=== PATIENT | male | born 1960 | race Caucasian/White ===

== ENCOUNTER → 2018-05-01 12:43 | Outpatient (CLI) | payer OTHER, SELFPAY ==
--- NOTE | 2018-05-01 | DI.US.S_ITS ---
PROCEDURE: US SCROTUM INDICATIONS: LEFT HYDROCELE TECHNIQUE: Real-time scanning was performed of the scrotum and testicles, with image documentation. Color and pulse Doppler interrogation was performed of both testicles. COMPARISON: [facility], , TESTICLE IMAGING, 02/21/2017, 15:52. FINDINGS: Right: Testicle is normal in size at 4.9 x 2.8 x 3.2 cm, and homogenous in echotexture. Epididymis is normal in overall size and morphology. No hydrocele or varicoceles. Overlying scrotal skin is normal in thickness. Left: Testicle is normal in size at 5.2 x 3.0 x 2.8 cm, and homogeneous in echotexture. 3 mm echogenic focus involving left testis is unchanged. Epididymis is normal in overall size and morphology. No hydrocele or varicoceles. Debris-filled cyst present within the left hemiscrotum likely a spermatocele measuring 4.6 x 4.5 x 6.1 cm, previously measured 6.4 x 5.9 x 5.2 cm on 02/21/17.. Overlying scrotal skin is normal in thickness. Doppler: Color and pulse Doppler demonstrate normal and symmetric arterial flow in both testicles. IMPRESSION: 1. Stable appearance of 3 mm echogenic focus within the left testicle otherwise testicles are normal bilaterally. 2. Debris-filled cystic mass within the left hemiscrotum suspicious for spermatocele/hydrocele measuring up to 6.1 cm. Dictated by: Kostas Pizarro [facility] Interpreted: Ashok Vila MD on 05/01/2018 at 15:00 Approved by: Ashok Vila M.D. on 05/01/2018 at 19:09
== END ==
PROVIDERS: PCP Family Medicine; Visit Provider Physician Assistant
DX: N43.3 Hydrocele, unspecified (principal)
CPT/HCPCS: 76870

== ENCOUNTER → 2018-06-19 12:43 | Outpatient (CLI) | payer OTHER, SELFPAY ==
[2018-06-19 12:49] LABS: Bacteria Urine None Seen; RBC Urine None Seen (0-5/HPF); WBC Urine None Seen (0-5/HPF)
[2018-06-19 13:01] LABS: Appearance Urine UA CLEAR; Bilirubin Urine UA NEGATIVE (NEGATIVE); Color Urine UA YELLOW; Glucose Urine UA NEGATIVE (Normal); Ketones Urine UA NEGATIVE (NEGATIVE); Leukocyte Esterase Urine UA NEGATIVE (NEGATIVE); Nitrite Urine UA Negative (Negative); Occult Blood Urine UA NEGATIVE (Negative); Protein Urine UA NEGATIVE (Negative); Specific Gravity Urine UA 1.025 (1.000-1.035); Urobilinogen Urine UA 0.2 E.U./dL (0.2); pH Urine UA 5.5 (4.5-8.0)
[2018-06-19 13:06] LABS: Add Manual Diff / Slide Review NO; Basophils Percent Auto 0.7 % (0-2); Eosinophils Percent Auto 4.7 % (2-4); Hemoglobin 12.9 g/dL (13.5-17.5); Lymphocytes Percent Auto 42.7 % (25-40); Mean Corpuscular HGB Conc 33.1 % (30-36); Mean Corpuscular Volume 81.6 fL (80-100); Monocytes Percent Auto 12.7 % (3-14); Neutrophils Absolute Auto 2500 /uL (3000-5900); Neutrophils Percent Auto 39.2 % (50-75); Platelet Count 242 X10^3/uL (150-400); Red Blood Cell Count 4.77 X10^6/uL (4.5-5.9); Red Cell Distribution Width 14.1 % (11.6-14.8); White Blood Cell Count 6.5 X10^3/uL (4.5-11.0)
[2018-06-19 13:07] LABS: Culture Indicated Urine Cult Not Indicated; Urine Comments Microscopic Normal
[2018-06-19 13:15] LABS: Hemoglobin A1C% w Est Avg Glu 5.7 % (4.0-6.0)
[2018-06-19 13:42] LABS: BUN Creatinine Ratio 27.5 (6-22); Blood Urea Nitrogen 22 mg/dL (9-20); Calcium 9.6 mg/dL (8.4-10.2); Carbon Dioxide 27 mmol/L (22-32); Chloride 103 mmol/L (98-107); Estimated Glomerular Filt Rate > 60.0 mL/min (>60); Glucose 105 mg/dL (80-110); HEMOLYSIS < 15 (0-50); Potassium 4.5 mmol/L (3.4-5.1); Sodium 142 mmol/L (137-145)
[2018-06-19 13:52] LABS: Transferrin 254 mg/dL (206-381)
== END ==
PROVIDERS: PCP Family Medicine; Visit Provider Orthopaedic Surgery
DX: M25.561 Pain in right knee (principal); Z01.812 Encounter for preprocedural laboratory examination; D64.9 Anemia, unspecified; R73.9 Hyperglycemia, unspecified; N39.0 Urinary tract infection, site not specified
CPT/HCPCS: 36415; 80048; 81001; 83036; 84466; 85025

== ENCOUNTER → 2019-04-30 16:30 | Outpatient (CLI) | payer OTHER, SELFPAY ==
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
== END ==
PROVIDERS: PCP Family Medicine; Visit Provider Family Medicine
DX: M25.562 Pain in left knee (principal); M25.561 Pain in right knee; V89.2XXD Person injured in unspecified motor-vehicle accident, traffic, subsequent encounter
CPT/HCPCS: 73562

== ENCOUNTER → 2021-03-23 08:34 | Outpatient (CLI) | payer OTHER, SELFPAY ==
[2021-03-23 11:29] LABS: COVID19 -Nasal RAPID Negative (Negative)
== END ==
PROVIDERS: PCP Student in an Organized Health Care Education/Training Program; Visit Provider Nurse Practitioner Family
DX: Z20.822 Contact with and (suspected) exposure to COVID-19 (principal)
CPT/HCPCS: 87635

== ENCOUNTER → 2021-03-25 14:18 | Day surgery (SDC) | payer OTHER, SELFPAY ==
--- NOTE | 2021-03-25 | PATH_ITS ---
[facility] Accession Number: [id number] . 01 Material submitted: . PART A: cecum - CECAL POLYP X2 - 2MM PART B: colon - ASCENDING COLON POLYP . 02 Diagnosis: A. Cecum, Polyps x2, 2 mm, Biopsies: Tubular adenomas. . B. Ascending Colon, Polyp, Biopsy: Tubular adenoma. MRV 03/30/2021 1310 Local . 02 Electronically signed: . Lizbet Wheatley MD, Pathologist NPI- [id number] . 01 Gross description: . Part A: CECAL POLYP X2 - 2MM: Received in formalin are 2 fragment(s) of tamez, soft tissue measuring 0.1 x 0.1 x 0.1 cm to 0.5 x 0.5 x 0.2 cm submitted entirely in 1 cassette(s) Part B: ASCENDING COLON POLYP: Received in formalin are 2 fragment(s) of tamez, soft tissue measuring 0.3 x 0.3 x 0.3 cm to 0.5 x 0.3 x 0.3 cm submitted entirely in 1 cassette(s) /ENE 03/28/2021 1906 Local . 02 Pathologist provided ICD-10: D12.0, D12.2 . 02 CPT . 295466, [id number] Performed at: 01 [facility] [address], [place], [place] [id number] MD Robbie Maravilla MD Phone: [phone] Performed at: 02 [facility] [address] [place], [place] [id number] MD Lizbet Wheatley MD Phone: [phone]
--- NOTE | 2021-03-25 12:15 | P.HP_ITS ---
History of Present Illness History of Present Illness Date Patient Seen: 03/25/21 Chief complaint: TNC Narrative: 60 Years Old Male seen today for consideration of a screening colonoscopy. He has had some reflux and epigastric abdominal pain that has improved with omeprazole. Otherwise, there have been no lower GI symptoms suggesting disease such as change in bowel habits, bleeding, or anemia. There's been a family history of colon cancer in his morther at age 35. Overall health issues have been stable, including no major cardiac events for at least 6 weeks. 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 @ [employer] Household Members: Education: 12 4-5 beers per week Patient History Medical History (Updated 03/25/21 @ 13:38 by Paola Fernandes RN) DJD (degenerative joint disease) HTN (hypertension) Hyperlipemia Surgical History (Updated 03/25/21 @ 13:38 by Paola Fenrandes RN) H/O: vasectomy History of partial knee replacement S/P hernia repair S/P repair of hydrocele Meds Home Medications and Allergies Home Medications Medication Instructions Recorded Confirmed Type lisinopril 5 mg PO QDAY #0 02/23/17 03/25/21 History omeprazole 20 mg PO DAILY 03/25/21 03/25/21 History Allergies Allergy/AdvReac Type Severity Reaction Status Date / Time No Known Drug Allergies Allergy Verified 03/25/21 14:28 Review of Systems Review of Systems ROS: Yes All systems reviewed with the patient and are negative except as otherwise documented Exam Narrative Exam Narrative: General: well developed, well nourished, in no acute distress, Head: normocephalic and atraumatic, Lungs: normal respiratory effort, clear bilaterally to auscultation, no wheezes rales or rhonchi. Heart: normal rate and regular rhythm, no murmurs, rubs, gallops, or clicks, Abdomen: abdomen soft and non-tender without masses, organomegaly, or abdominal wall hernias, bowel sounds positive. Skin: intact without suspicious lesions or rashes, Psych: alert and cooperative; normal mood and affect; normal attention span and concentration; cognition, remote and recent memory appear to be intact, Assessment & Plan Assessment & Plan narrative: 1. Family history of colon cancer 2. Screening for colon cancer Plan for colonoscopy. The nature and character of the procedure as well as anticipated results were discussed. The possibility of not completing the procedure was also discussed. Possible complications including aspiration pneumonia, bleeding, perforation and reaction to medications either for sedation or preparation and missed lesions were discussed. Questions were answered and proceeding to the colonoscopy was elected. Informed consent signed. I sincerely appreciate the referral allowing me to participate in this patient's care. Please contact me with any questions or concerns.
--- NOTE | 2021-03-25 12:16 | PM.OP.ENDO ---
Operative Date/Time/Diagnoses Date of procedure: 03/25/21 Procedure Notes SCOAP/Timeout: 3:13 p.m. Procedure in detail: ENDOSCOPIST: Analilia Gastelum MD Sedation RN: Wilma Medina RN Sedation start time: 3:14 p.m. Sedation end time: 3:15 p.m. PROCEDURE: Colonoscopy with cold snares and methylene blue lift INDICATIONS: 1. Family history of colon cancer 2. Screening for colon cancer MEDICATION: Levsin 0.125 mg sublingual, incremental doses of Versed and fentanyl until appropriate level sedation achieved. ASA CLASS: 2 CECAL WITHDRAWAL TIME: 28 minutes COMPLICATIONS: None. EXTENT OF PROCEDURE: Cecum. QUALITY OF PREP: Good with portions of liquid stool. PROCEDURE: Prior to insertion of the colonoscope, a digital rectal examination was accomplished with circumferential palpation of the distal rectal mucosa without significant findings being noted. The high-definition colonoscope was passed into the rectum in the usual fashion and advanced over to the cecum without difficulty. The ileocecal valve, appendiceal stoma, and medial wall all could be inspected and 2 small polyps, 2 mm each, were removed with cold biopsy forceps, excellent hemostasis. ASCENDING COLON: As the colonoscope was withdrawn, care was taken to expose and inspect the haustral folds and a 8 mm polyp was seen, lifted with methylene blue, and removed with cold snare. Excellent hemostasis. HEPATIC FLEXURE: Normal, no polyps, diverticula or other abnormalities. TRANSVERSE COLON: Normal, no polyps, diverticula or other abnormalities. DESCENDING COLON: Minor diverticulosis,, normal, no polyps, or other abnormalities. SIGMOID COLON: Minor diverticulosis,, normal, no polyps, or other abnormalities. RECTUM: Normal. J maneuver was produced. There was no significant perianal disease. The J maneuver was broken. The remainder of the rectum was inspected and there was no external hemorrhoid disease. The scope was withdrawn. IMPRESSION: 1. Cecal polyp x2, 2 mm, removed with cold biopsy forceps 2. Ascending polyp x1, 8 mm, lifted with methylene blue and removed with cold snare 3. Left-sided diverticulosis, minor PLAN: 1. Follow-up in clinic status post pathology results. The possibility of a missed lesion including a malignancy has been discussed with the patient previously. Potential alarm symptoms have been discussed and should be reported immediately.
[2021-03-25 14:34] VITALS: BP 142/91; PULSE 70; RESP 16; TEMP 36.8; O2SAT 97; BMI 26.6
[2021-03-25] MEDS: HYOSCYAMINE 0.125 MG TABLET PO (14:49)
[2021-03-25] MEDS: LACTATED RINGERS 1,000 ML 200 ML IV (14:50)
[2021-03-25] MEDS: fentaNYL 250 MCG/5 ML INJ IV (15:21)
[2021-03-25] MEDS: MIDAZOLAM 5 MG/5 ML VIAL IV (15:21)
[2021-03-25] MEDS: METHYLENE BLUE 50 MG/10 ML VIAL INJ (15:39)
[2021-03-25 15:56] VITALS: BP 128/58; PULSE 76; RESP 15; TEMP 36.6; O2SAT 96
[2021-03-25 15:59] VITALS: BP 122/71; PULSE 70; RESP 15; O2SAT 97
[2021-03-25 16:04] VITALS: BP 121/60; PULSE 81; RESP 15; TEMP 36.7; O2SAT 97
[2021-03-25 16:13] VITALS: BP 140/72; PULSE 58; RESP 12; TEMP 36.7; O2SAT 96
== END | disposition home or self-care (01) ==
PROVIDERS: PCP Student in an Organized Health Care Education/Training Program; Referring Provider Student in an Organized Health Care Education/Training Program; Visit Provider Student in an Organized Health Care Education/Training Program
PROC: 0DJD8ZZ Inspection of Lower Intestinal Tract, Via Natural or Artificial Opening Endoscopic (ICD-10-PCS; CPT 45378; principal; 2021-03-25 15:15)
DX: Z12.11 Encounter for screening for malignant neoplasm of colon (principal); Z80.0 Family history of malignant neoplasm of digestive organs; I10 Essential (primary) hypertension; E78.5 Hyperlipidemia, unspecified; K57.30 Diverticulosis of large intestine without perforation or abscess without bleeding; D12.0 Benign neoplasm of cecum; D12.2 Benign neoplasm of ascending colon
CPT/HCPCS: 45385; 45381; 45380; J2250; J3010; Q9968

== ENCOUNTER → 2022-04-15 14:34 | Outpatient (CLI) | payer OTHER, SELFPAY ==
--- NOTE | 2022-04-15 14:36 | DI.US.S_ITS ---
PROCEDURE: US RENAL COMPLETE INDICATIONS: Retention of urine, unspecified TECHNIQUE: Real-time scanning was performed of the kidneys and bladder, with image documentation. COMPARISON: None. FINDINGS: Kidneys: Kidneys are normal in size. Right kidney measures 10.7 cm long; left kidney measures 11.6 cm long. Renal cortical echotexture is normal. No hydronephrosis or nephrolithiasis. No suspicious solid mass lesions. The left kidney has multiple simple renal cysts, the largest measuring 5.1 x 5.7 x 6.9 cm in the superior pole. Bladder: The bladder is decompressed with a Dumont. Miscellaneous: No free pelvic fluid. IMPRESSION: 1. Simple left renal cysts. 2. Otherwise normal bilateral kidneys with no hydronephrosis. 3. The bladder is decompressed with a Dumont Dictated by: Naif Sanford M.D. on 04/15/2022 at 14:33 Approved by: Naif Sanford M.D. on 04/15/2022 at 14:35
== END ==
PROVIDERS: PCP Student in an Organized Health Care Education/Training Program; Referring Provider Physician Assistant Medical; Visit Provider Physician Assistant Medical
DX: N28.1 Cyst of kidney, acquired (principal); R33.9 Retention of urine, unspecified
CPT/HCPCS: 76770

== ENCOUNTER → 2022-05-16 09:53 | Outpatient (CLI) | payer OTHER, SELFPAY ==
[2022-05-16 10:18] LABS: Appearance Urine UA CLEAR; Bilirubin Urine UA NEGATIVE (NEGATIVE); Color Urine UA YELLOW; Glucose Urine UA NEGATIVE (Negative); Ketones Urine UA NEGATIVE (NEGATIVE); Leukocyte Esterase Urine UA NEGATIVE (NEGATIVE); Nitrite Urine UA NEGATIVE (Negative); Occult Blood Urine UA TRACE-INTACT (Negative); Protein Urine UA NEGATIVE (Negative); Urobilinogen Urine UA 0.2 E.U./dL (0.2); pH Urine UA 6.5 (4.5-8.0)
[2022-05-16 10:27] LABS: Bacteria Urine None Seen; Culture Indicated Urine Cult Not Indicated; RBC Urine 0-1/HPF (0-5/HPF); Squamous Epithelial Cell Urine None Seen (0-5/HPF); WBC Urine None Seen (0-5/HPF)
== END ==
PROVIDERS: PCP Family Medicine; Referring Provider Urology; Visit Provider Urology
DX: R33.9 Retention of urine, unspecified (principal)
CPT/HCPCS: 81001

== ENCOUNTER → 2025-01-02 11:44 | Outpatient (CLI) | payer OTHER, SELFPAY ==
--- NOTE | 2025-01-02 11:46 | DI.US.S_ITS ---
PROCEDURE: US ABD AORTA ANEURYSM SCREEN INDICATIONS: HX OF SMOKING TECHNIQUE: Real time scanning was performed of the aorta and iliac arteries, with image documentation. COMPARISON: None. FINDINGS: Aorta: Proximal aortic diameter measures 2.8 cm. Mid-aorta measures 2.0 cm. Distal aortic diameter is 1.8 cm. Iliac arteries: Right common iliac artery measures 0.8 cm. Left common iliac artery measures 1.0 cm. IMPRESSION: Normal examination. Dictated by: Jamie Quintero M.D. on 01/02/2025 at 13:21 Approved by: Jamie Quintero M.D. on 01/02/2025 at 13:22
== END ==
PROVIDERS: PCP Family Medicine; Referring Provider Family Medicine; Visit Provider Family Medicine
DX: Z13.6 Encounter for screening for cardiovascular disorders (principal); Z87.891 Personal history of nicotine dependence
CPT/HCPCS: 76706